=== PATIENT | female | born 1940 | race Caucasian/White ===

== ENCOUNTER → 2018-09-04 | Outpatient (CLI) | payer MEDICARE | END | disposition home or self-care (01) | LOC: CVU 13:50 | PROVIDERS: ATTEND Internal Medicine Cardiovascular Disease | DX: I10 Essential (primary) hypertension (principal); E78.5 Hyperlipidemia, unspecified; Z86.718 Personal history of other venous thrombosis and embolism | CPT/HCPCS: 93306 ==

== ENCOUNTER 2019-06-15 10:49 | Observation (INO) | payer MEDICARE ==
[2019-06-14 10:00] LABS: BASOPHILS # (AUTO) 0.02 x10^3/uL (0-0.1); BASOPHILS % (AUTO) 0 % (0-1); EOSINOPHILS # (AUTO) 0.17 x10^3/uL (0-0.4); EOSINOPHILS % (AUTO) 3 % (1-7); LYMPHOCYTES # (AUTO) 1.97 x10^3/uL (1-3.4); LYMPHOCYTES % (AUTO) 29 % (22-44); MD NO; MEAN CORPUSCULAR HEMOGLOBIN 29.7 pg (27.0-34.8); MEAN CORPUSCULAR HGB CONC 32.5 g/dL (32.4-35.8); MEAN CORPUSCULAR VOLUME 91.3 fL (80-100); MEAN PLATELET VOLUME 8.3 fL (7.4-10.4); MONOCYTES # (AUTO) 0.57 x10^3/uL (0.2-0.8); MONOCYTES % (AUTO) 8 % (2-9); NEUTROPHILS # (AUTO) 4.03 x10^3/uL (1.8-6.8); NEUTROPHILS % (AUTO) 60 % (42-75); PLATELET COUNT 208 x10^3/uL (130-400); RED BLOOD COUNT 4.75 x10^6/uL (3.82-5.3); RED CELL DISTRIBUTION WIDTH 14.3 % (9.6-15.2)
[2019-06-14 10:13] LABS: ALANINE AMINOTRANSFERASE 23 U/L (12-78); ALBUMIN 3.3 g/dL (3.4-5.0); ANION GAP 6 mmol/L (5-15); CALCIUM 8.8 mg/dL (8.5-10.1); CHLORIDE 108 mmol/L (98-107); CREATININE 0.85 mg/dL (0.55-1.02); INTERNATIONAL NORMALIZED RATIO 1.02 (0.93-1.1); PROTHROMBIN TIME 10.7 Seconds (9.6-11.5)
[2019-06-14 10:16] LABS: ALKALINE PHOSPHATASE 153 U/L (45-117); BILIRUBIN,TOTAL 0.4 mg/dL (0.2-1.0)
[~2019-06-15] VITALS: Ht 172.7 cm; Wt 131.8 kg
[2019-06-15] MEDS: DOCUSATE 100 MG CAPSULE PO SCH ×2 (09:00→19:59)
[~2019-06-15 10:49] MED LIST: ACETAMINOPHEN 650 MG/20.3 ML UDC PO PRN; APIX2.5T PO; APIXABAN 2.5 MG TABLET PO SCH; BISACODYL 10 MG SUPP PR PRN; CALC1CAP8 PO; CHOL2000 PO; DIPHENHYDRAMINE 50 MG CAPSULE PO PRN; EPINEPHRINE 1 MG/ML, 1ML ONE; FENTANYL PF 250 MCG/5ML ONE; FLUV80TA PO; GABA100C PO; GABAPENTIN 100 MG CAPSULE PO SCH; HYDROmorphone 1 MG/ML, 1ML INJ IV PRN; KETOROLAC 60 MG/2 ML ONE; LEVO75TA5 PO; LEVOTHYROXINE 75 MCG TABLET PO SCH; LISI-167 PO; LISINOPRIL 10 MG TABLET PO SCH; MAGNESIUM HYDROXIDE 8%, 30ML UDC PO PRN; MEPERIDINE/PF 100 MG/ML ONE; MIDAZOLAM 1 MG/ML, 2ML ONE; ONDANSETRON 2MG/ML, 2ML IV PRN; ONDANSETRON 4 MG TABLET PO PRN; OXYcodone IR 5MG TABLET PO PRN; ROPIvacaine/PF 0.5%, 20 ML ONE; SCOPOLAMINE PATCH, 1.5MG PATCH.TD72 TD ONE; SENNA/DOCUSATE TABLET PO PRN; SODIUM CHLORIDE 0.9% 50 ML ONE; TRANEXAMIC ACID 100 MG/ML, 10ML ONE; VANCOMYCIN 1,000 MG ONE; ZOLPIDEM 5MG TABLET PO PRN
[2019-06-15] MEDS ORDERED: GABAPENTIN 300 MG CAPSULE PO ONE (11:00)
[2019-06-15] MEDS ORDERED: ACETAMINOPHEN 500 MG TABLET PO ONE (11:00)
[2019-06-15] MEDS ORDERED: LACTATED RINGERS 1,000 ML IV STA (12:08)
[2019-06-15] MEDS ORDERED: DEXMEDETOMIDINE 200 MCG/2 ML ONE (12:19)
[2019-06-15] MEDS ORDERED: GLYCOPYRROLATE 0.2MG/1ML, 5ML ONE (12:19)
[2019-06-15] MEDS ORDERED: ROCURONIUM 10MG/ML,5ML ONE (12:42)
[2019-06-15] MEDS ORDERED: ONDANSETRON 2MG/ML, 2ML ONE (12:42)
[2019-06-15] MEDS ORDERED: PROPOFOL 10 MG/ML, 20ML ONE (12:42)
[2019-06-15] MEDS ORDERED: SUGAMMADEX 200 MG/2 ML IVPush ONE ×2 (12:42→13:07)
[2019-06-15] MEDS ORDERED: CEFAZOLIN 1,000 MG ONE (12:42)
[2019-06-15] MEDS ORDERED: LIDOCAINE-MPF 2% ,5ML ONE (12:42)
[2019-06-15] MEDS ORDERED: DEXAMETHASONE 4 MG/ML, 1ML ONE (12:42)
[2019-06-15] MEDS ORDERED: BUPIVACAINE/PF 0.25% ONE (12:43)
[2019-06-15] MEDS ORDERED: EPINEPHRINE 1 MG/ML, 1ML ONE (12:43)
[2019-06-15] MEDS ORDERED: HALOPERIDOL 5 MG/ML IV PRN (13:00)
[2019-06-15] MEDS ORDERED: hydrALAzine 20 MG/ML, 1ML IV PRN (13:00)
[2019-06-15] MEDS ORDERED: METHOCARBAMOL 1,000 MG in DEXTROSE 5% 100 ML IV PRN (13:00)
[2019-06-15] MEDS ORDERED: OXYcodone 5 MG/5 ML ORAL.SOL UDC PO PRN (13:00)
[2019-06-15] MEDS ORDERED: HYDROmorphone 2 MG/ML, 1ML IVPush PRN (13:00)
[2019-06-15] MEDS ORDERED: MEPERIDINE/PF 25MG/ML,1ML IVPush PRN (13:00)
[2019-06-15] MEDS ORDERED: FENTANYL PF 100 MCG/2ML ONE (14:09)
[2019-06-15] MEDS ORDERED: OXYcodone 5 MG/5 ML ORAL.SOL UDC ONE (14:10)
[2019-06-15] MEDS: FENTANYL PF 100 MCG/2ML IV PRN ×2 (14:20→14:28)
[2019-06-15 15:19] VITALS: BP 101/55
[2019-06-15] MEDS ORDERED: LACTATED RINGERS 1,000 ML IV SCH (16:00)
[2019-06-15] MEDS: ASPIRIN 81 MG TABLET EC PO SCH (17:33)
[2019-06-15] MEDS: NS + 20MEQ KCL 1,000 ML IV SCH (17:34)
[2019-06-15] MEDS ORDERED: LEVOTHYROXINE 75 MCG TABLET HOMEMEDPO SCH (19:16)
[2019-06-15] MEDS ORDERED: LISINOPRIL 10 MG TABLET HOMEMEDPO SCH (19:22)
[2019-06-15] MEDS ORDERED: GABAPENTIN 100 MG CAPSULE HOMEMEDPO SCH (19:23)
[2019-06-15 19:33] VITALS: BP 103/64
[2019-06-15] MEDS: HYDROcodone/APAP 5/325 TABLET PO PRN (20:28)
[2019-06-15] MEDS: CEFAZOLIN PMX 2GM/50ML 50 ML IVPB SCH (20:31)
[2019-06-15] MEDS ORDERED: ATORVASTATIN 10 MG TABLET PO SCH (21:00)
[2019-06-16] VITALS: BP 102/64
[2019-06-16 03:57] VITALS: BP 92/59
[2019-06-16] MEDS: CEFAZOLIN PMX 2GM/50ML 50 ML IVPB SCH (05:03)
[2019-06-16] MEDS: NS + 20MEQ KCL 1,000 ML IV SCH ×2 (05:04→08:20)
[2019-06-16] MEDS: ASPIRIN 81 MG TABLET EC PO SCH (06:00)
[2019-06-16] MEDS ORDERED: DEXAMETHASONE 4 MG/ML, 1ML IVPush SCH (06:00)
[2019-06-16] MEDS: HYDROcodone/APAP 5/325 TABLET PO PRN ×2 (06:17→10:15)
[2019-06-16 07:18] VITALS: BP 113/68
[2019-06-16] MEDS: DOCUSATE 100 MG CAPSULE PO SCH (08:40)
[2019-06-16] MEDS ORDERED: APIXABAN 2.5 MG TABLET HOMEMEDPO SCH (09:00)
[2019-06-16] MEDS ORDERED: OXYC5CAP2 PO (09:42)
[2019-06-16] MEDS ORDERED: TRAM50TA2 PO (09:43)
[2019-06-16 13:27] VITALS: BP 152/84
[2019-06-16 16:58] VITALS: BP 140/82
== END 2019-06-16 17:30 | disposition home or self-care (01) ==
LOC: OR 10:49 → 4NE 15:10 → OR 21:58 → 4NE 21:58
PROVIDERS: ADMIT Orthopaedic Surgery; ATTEND Orthopaedic Surgery
DX: M17.11 Unilateral primary osteoarthritis, right knee (principal); E66.01 Morbid (severe) obesity due to excess calories; I10 Essential (primary) hypertension; Z79.01 Long term (current) use of anticoagulants; Z68.41 Body mass index [BMI] 40.0-44.9, adult; Z79.899 Other long term (current) drug therapy; Z87.891 Personal history of nicotine dependence
CPT/HCPCS: 27447; 36415; 80053; 83036; 85014; 85018; 85025; 85610; 85730; 87081; 87147; 93005; 96365; 96366; 96375; 97163; C1713; C1776; G0378; J0171; J0690; J1100; J1885; J2175; J2250; J2405; J2704; J2795; J3010; J3370; J3480; J3490; J7120

== ENCOUNTER → 2020-01-01 | Outpatient (CLI) | payer MEDICARE ==
[~2020-01-01] MED LIST changes: -ACETAMINOPHEN 650 MG/20.3 ML UDC PO PRN; -APIXABAN 2.5 MG TABLET PO SCH; -BISACODYL 10 MG SUPP PR PRN; -DIPHENHYDRAMINE 50 MG CAPSULE PO PRN; -EPINEPHRINE 1 MG/ML, 1ML ONE; -FENTANYL PF 250 MCG/5ML ONE; -FLUV80TA PO; +FLUV80TA2 PO; -GABAPENTIN 100 MG CAPSULE PO SCH; -HYDROmorphone 1 MG/ML, 1ML INJ IV PRN; -KETOROLAC 60 MG/2 ML ONE; -LEVOTHYROXINE 75 MCG TABLET PO SCH; -LISINOPRIL 10 MG TABLET PO SCH; -MAGNESIUM HYDROXIDE 8%, 30ML UDC PO PRN; -MEPERIDINE/PF 100 MG/ML ONE; -MIDAZOLAM 1 MG/ML, 2ML ONE; -ONDANSETRON 2MG/ML, 2ML IV PRN; -ONDANSETRON 4 MG TABLET PO PRN; +OXYC5CAP2 PO; -OXYcodone IR 5MG TABLET PO PRN; -ROPIvacaine/PF 0.5%, 20 ML ONE; -SCOPOLAMINE PATCH, 1.5MG PATCH.TD72 TD ONE; -SENNA/DOCUSATE TABLET PO PRN; -SODIUM CHLORIDE 0.9% 50 ML ONE; +TRAM50TA2 PO; -TRANEXAMIC ACID 100 MG/ML, 10ML ONE; -VANCOMYCIN 1,000 MG ONE; -ZOLPIDEM 5MG TABLET PO PRN
[2020-01-01 14:43] LABS: BASOPHILS # (AUTO) 0.04 x10^3/uL (0-0.1); BASOPHILS % (AUTO) 1 % (0-1); EOSINOPHILS # (AUTO) 0.18 x10^3/uL (0-0.4); EOSINOPHILS % (AUTO) 3 % (1-7); LYMPHOCYTES # (AUTO) 2.01 x10^3/uL (1-3.4); LYMPHOCYTES % (AUTO) 32 % (22-44); MD NO; MEAN CORPUSCULAR HEMOGLOBIN 29.1 pg (27.0-34.8); MEAN CORPUSCULAR HGB CONC 32.1 g/dL (32.4-35.8); MEAN CORPUSCULAR VOLUME 90.7 fL (80-100); MEAN PLATELET VOLUME 8.4 fL (7.4-10.4); MONOCYTES % (AUTO) 7 % (2-9); NEUTROPHILS # (AUTO) 3.58 x10^3/uL (1.8-6.8); NEUTROPHILS % (AUTO) 58 % (42-75); PLATELET COUNT 197 x10^3/uL (130-400); RED BLOOD COUNT 4.68 x10^6/uL (3.82-5.3); RED CELL DISTRIBUTION WIDTH 13.8 % (9.6-15.2)
[2020-01-01 14:53] LABS: ALANINE AMINOTRANSFERASE 20 U/L (12-78); ALBUMIN 3.4 g/dL (3.4-5.0); ANION GAP 4 mmol/L (5-15); CALCIUM 9.3 mg/dL (8.5-10.1); CHLORIDE 112 mmol/L (98-107); CREATININE 0.74 mg/dL (0.55-1.02); INTERNATIONAL NORMALIZED RATIO 1.01 (0.93-1.1); PROTHROMBIN TIME 10.7 Seconds (9.6-11.5)
[2020-01-01 14:55] LABS: ALKALINE PHOSPHATASE 156 U/L (45-117); BILIRUBIN,TOTAL 0.3 mg/dL (0.2-1.0)
== END | disposition home or self-care (01) ==
LOC: STAR 13:33
PROVIDERS: ATTEND Orthopaedic Surgery
DX: Z01.818 Encounter for other preprocedural examination (principal); M17.12 Unilateral primary osteoarthritis, left knee; M25.562 Pain in left knee
CPT/HCPCS: 36415; 80053; 83036; 85025; 85610; 85730; 87081; 93005

== ENCOUNTER 2020-01-16 10:42 | Observation (INO) | payer MEDICARE ==
[~2020-01-16] VITALS: Ht 172.7 cm; Wt 123.0 kg
[2020-01-16] MEDS: LEVOTHYROXINE 75 MCG TABLET PO SCH (06:00)
[2020-01-16] MEDS: NS + 20MEQ KCL 1,000 ML IV SCH ×2 (06:42→19:12)
[2020-01-16] MEDS: LISINOPRIL 10 MG TABLET PO SCH (09:00)
[2020-01-16] MEDS: DOCUSATE 100 MG CAPSULE PO SCH ×2 (09:00→20:30)
[~2020-01-16 10:42] MED LIST changes: +ACETAMINOPHEN 650 MG/20.3 ML UDC PO PRN; +BISACODYL 10 MG SUPP PR PRN; +DIPHENHYDRAMINE 25 MG CAPSULE PO PRN; +HYDROcodone/APAP 5/325 TABLET PO PRN; +HYDROmorphone 1 MG/ML, 1ML INJ IV PRN; +MAGNESIUM HYDROXIDE 8%, 30ML UDC PO PRN; +ONDANSETRON 2MG/ML, 2ML IV PRN; +ONDANSETRON 4 MG TABLET PO PRN; +OXYcodone IR 5MG TABLET PO PRN; +SENNA/DOCUSATE TABLET PO PRN; +ZOLPIDEM 5MG TABLET PO PRN
[2020-01-16] MEDS ORDERED: LACTATED RINGERS 1,000 ML IV SCH (11:05)
[2020-01-16] MEDS ORDERED: ACETAMINOPHEN 500 MG TABLET ONE (11:10)
[2020-01-16] MEDS ORDERED: GABAPENTIN 300 MG CAPSULE ONE (11:10)
[2020-01-16] MEDS ORDERED: CHLORHEXIDINE 15 ML UDC ONE (11:10)
[2020-01-16] MEDS ORDERED: ACETAMINOPHEN 500 MG TABLET PO ONE (11:30)
[2020-01-16] MEDS ORDERED: CHLORHEXIDINE 15 ML UDC MM ONE (11:30)
[2020-01-16] MEDS ORDERED: GABAPENTIN 300 MG CAPSULE PO ONE (11:30)
[2020-01-16] MEDS ORDERED: TRANEXAMIC ACID 100 MG/ML, 10ML ONE ×2 (11:42)
[2020-01-16] MEDS ORDERED: KETOROLAC 60 MG/2 ML ONE (11:42)
[2020-01-16] MEDS ORDERED: EPINEPHRINE 1 MG/ML, 1ML ONE (11:43)
[2020-01-16] MEDS ORDERED: FENTANYL PF 250 MCG/5ML ONE (11:43)
[2020-01-16] MEDS ORDERED: ROPIvacaine/PF 0.5%, 30 ML ONE (11:43)
[2020-01-16] MEDS ORDERED: ROPIvacaine/PF 0.5%, 20 ML ONE (11:43)
[2020-01-16] MEDS ORDERED: SODIUM CHLORIDE 0.9% 50 ML ONE (11:43)
[2020-01-16] MEDS ORDERED: VANCOMYCIN 1,000 MG ONE (11:43)
[2020-01-16] MEDS ORDERED: ROCURONIUM 10MG/ML,5ML ONE (11:44)
[2020-01-16] MEDS ORDERED: PROPOFOL 10 MG/ML, 20ML ONE (11:44)
[2020-01-16] MEDS ORDERED: LIDOCAINE PF 2%, 5ML ONE (12:34)
[2020-01-16] MEDS ORDERED: DEXAMETHASONE 4 MG/ML, 1ML ONE (12:34)
[2020-01-16] MEDS ORDERED: NEOSTIGMINE 1 MG/ML, 10ML ONE (12:34)
[2020-01-16] MEDS ORDERED: GLYCOPYRROLATE 0.2MG/1ML, 5ML ONE (12:34)
[2020-01-16] MEDS ORDERED: ONDANSETRON 2MG/ML, 2ML ONE (12:34)
[2020-01-16] MEDS ORDERED: OXYcodone 5 MG/5 ML ORAL.SOL UDC PO PRN (13:30)
[2020-01-16] MEDS ORDERED: ONDANSETRON 2MG/ML, 2ML IVPush PRN (13:30)
[2020-01-16] MEDS ORDERED: MEPERIDINE/PF 25MG/0.5ML IVPush PRN (13:30)
[2020-01-16] MEDS ORDERED: LABETALOL 5MG/ML, 20ML IV PRN (13:30)
[2020-01-16] MEDS ORDERED: hydrALAzine 20 MG/ML, 1ML IV PRN (13:30)
[2020-01-16] MEDS ORDERED: OXYcodone 5 MG/5 ML ORAL.SOL UDC ONE (14:11)
[2020-01-16] MEDS ORDERED: FENTANYL PF 100 MCG/2ML ONE (14:11)
[2020-01-16] MEDS ORDERED: HYDROmorphone 1 MG/ML, 1ML INJ ONE (14:11)
[2020-01-16] MEDS: FENTANYL PF 100 MCG/2ML IV PRN ×2 (14:15→14:27)
[2020-01-16] MEDS: HYDROmorphone 1 MG/ML, 1ML INJ IVPush PRN ×2 (14:47→14:59)
[2020-01-16] MEDS: ASPIRIN 81 MG TABLET EC PO SCH (18:25)
[2020-01-16 19:34] VITALS: BP 109/65
[2020-01-16] MEDS: CEFAZOLIN PMX 2GM/50ML 50 ML IVPB SCH (20:30)
[2020-01-17 00:47] VITALS: BP 112/63
[2020-01-17 04:00] VITALS: BP 120/83
[2020-01-17] MEDS: CEFAZOLIN PMX 2GM/50ML 50 ML IVPB SCH (04:27)
[2020-01-17] MEDS ORDERED: DEXAMETHASONE 4 MG/ML, 1ML IVPush SCH (06:00)
[2020-01-17] MEDS: NS + 20MEQ KCL 1,000 ML IV SCH (06:01)
[2020-01-17] MEDS: LEVOTHYROXINE 75 MCG TABLET PO SCH (06:01)
[2020-01-17] MEDS: ASPIRIN 81 MG TABLET EC PO SCH (06:01)
[2020-01-17 08:17] VITALS: BP 114/59
[2020-01-17] MEDS: DOCUSATE 100 MG CAPSULE PO SCH (08:42)
[2020-01-17] MEDS: LISINOPRIL 10 MG TABLET PO SCH (08:42)
== END 2020-01-17 12:03 | disposition home or self-care (01) ==
LOC: OUT 10:42 → 4NE 15:44 → OUT 20:15 → DCLOUNGE 01-17 11:55
PROVIDERS: ADMIT Orthopaedic Surgery; ATTEND Orthopaedic Surgery
DX: Z03.818 Encounter for observation for suspected exposure to other biological agents ruled out (principal); M17.12 Unilateral primary osteoarthritis, left knee; E03.9 Hypothyroidism, unspecified; I10 Essential (primary) hypertension; E78.5 Hyperlipidemia, unspecified; Z79.899 Other long term (current) drug therapy; Z87.891 Personal history of nicotine dependence; Z86.711 Personal history of pulmonary embolism
CPT/HCPCS: 27447; 36415; 85014; 85018; 87635; 96365; 96366; 96375; 97110; 97161; 97165; C1713; C1776; G0378; J0171; J0690; J1100; J1170; J1885; J2405; J2704; J2710; J2795; J3010; J3370; J7120